=== PATIENT | female | born 1985 | race Caucasian/White ===

== ENCOUNTER 2018-09-25 07:33 | Observation (INO) | payer BC, SELFPAY ==
[2018-09-25] VITALS (12 sets, daily range): BP systolic 123–163; BP diastolic 75–107; PULSE 64–97; RESP 16–18; TEMP 36.8–36.9; O2SAT 98–100; BMI 22.3
--- NOTE | 2018-09-25 08:01 | XR_ITS ---
XR chest 2V HISTORY: ITS.REASON: pain ORDERING PHYSICIAN: Wade Lynn MD PATIENT AGE: 33 years COMPARISON: 11/08/2016 FINDINGS: The cardiomediastinal silhouette and pulmonary vascularity are within normal limits. The lungs are clear without infiltrates, suspicious nodules, or pleural effusions. No acute bony abnormalities. IMPRESSION: Negative chest, no acute finding
[2018-09-25 08:19] LABS: Microscopic, Urine URINE MICROSCOPIC (MICROSCOPIC)
[2018-09-25 08:21] LABS: Appearance,Urine CLEAR (Clear); Bilirubin,Urine Negative (Negative); Blood, Urine Negative (Negative); Color,Urine YELLOW (Yellow); Glucose,Urine (UA) Negative (Negative); Ketones,Urine Negative (Negative); Leukocyte Esterase,Urine TRACE (Negative); Nitrate,Urine Negative (Negative); Protein,Urine Negative (Negative); Urobilinogen,Urine 0.2 EU/dl (0.2)
[2018-09-25 08:23] LABS: Basophils % 0.6 % (0.1-2.0); Eosinophils # 0.1 K/mm3 (0.0-0.4); Eosinophils % 1.7 % (0.1-12.0); Hematocrit 38.5 % (37.0-47.0); Hemoglobin 11.5 g/dL (12.2-16.2); Lymphocytes # 1.4 K/mm3 (0.7-4.5); Lymphocytes % 23.8 % (10-50); Mean Corpuscular Hemoglobin 24.9 pg (27.0-31.2); Mean Corpuscular Volume 82.9 fl (81-99); Mean Platelet Volume 7.8 fl (7.4-10.4); Monocytes # 0.4 K/mm3 (0.1-1.0); Monocytes % 6.1 % (1.7-9.3); Neutrophils # 3.9 K/mm3 (1.8-7.8); Neutrophils % 67.8 % (37.0-80.0); Platelet Count 274 K/mm3 (142-424); Red Blood Count 4.64 M/mm3 (4.20-5.40); Red Cell Distribution Width 18.9 % (11.5-17.5); White Blood Count 5.8 K/mm3 (4.8-10.8)
[2018-09-25 08:27] LABS: Urine Pregnancy, HCG Qual. Negative (Negative)
[2018-09-25 08:34] LABS: Alanine Aminotransferase 95 U/L (12-78); Albumin Level 3.6 gm/dL (3.4-5.0); Albumin/Globulin Ratio 0.9 (1.1-1.8); Alkaline Phosphatase 62 U/L (46-116); Amylase 40 U/L (25-115); Anion Gap 15.4 mEq/L (5-15); Aspartate Amino Transferase 149 U/L (15-37); Bilirubin,Direct 0.2 mg/dL (0.0-0.2); Bilirubin,Indirect 0.4 mg/dL (0.0-0.9); Bilirubin,Total 0.6 mg/dL (0.2-1.0); Blood Urea Nitrogen 7 mg/dL (7-18); Calcium 8.7 mg/dL (8.5-10.1); Carbon Dioxide 25 mmol/L (21.0-32.0); Chloride 100 mmol/L (98-107); Creatinine Clearance Estimated 95 mL/min (50-200); Creatinine,Serum 0.82 mg/dL (0.55-1.02); Estimated Glomerular Filt Rate 81 ml/min (>60); Ethyl Alcohol 12 mg/dL (0-99); GFR (African American) 98 ML/MIN (>60); Globulin 4.1 gm/dl (1.3-3.2); Glucose 93 mg/dL (74-106); Lipase 302 u/L (73-393); Potassium 3.4 mmoL/L (3.5-5.1); Sodium 137 mmol/L (136-145); Total Protein,Serum 7.7 gm/dL (6.4-8.2); Troponin I < 0.02 ng/ml (0.00-0.06)
--- NOTE | 2018-09-25 08:43 | HMH.EDGENADL ---
ED Disposition Clinical Impression: Alcoholism, Chest pain, atypical Alcohol withdrawal Qualifiers: Complication of substance-induced condition: uncomplicated Qualified Code(s): F10.230 - Alcohol dependence with withdrawal, uncomplicated Disposition: Admitted as Observation Condition on Discharge: Fair - Critical Care Critical Care Time: No Attestation: On 09/25/18, the high probability of a clinically significant, sudden or life threatening deterioration of the following system(s) required my full and direct attention, intervention and personal management. The time I documented below is in addition to time spent performing reported procedures but includes the following listed in this critical care notation. Medical Decision Making - D[place] Inquiry Pt receiving controlled substance: Yes D[place] was queried for this patient: No Reason not queried -: Emergent pt cond-no time Risks and benefits of using a controlled substance: were not discussed with pt by me Vital Signs: 09/25/18 07:49 09/25/18 08:04 09/25/18 08:30 Temperature 98.3 F Temperature Source Oral Pulse Rate [Left Radial] 89 81 76 Respiratory Rate 17 Blood Pressure [Right Arm] 151/107 H 163/104 H 153/100 H Blood Pressure Mean [Right Arm] 121 123 117 Blood Pressure Source [Right Arm] Automatic Cuff Automatic Cuff Automatic Cuff Blood Pressure Position [Right Arm] Sitting Supine Supine 02 Sat by Pulse Oximetry 100 100 100 Oxygen Delivery Method Room Air Room Air Room Air - Lab Data Lab Results 09/25/18 07:42: Urine Color Yellow, Urine Appearance Clear, Urine pH 6.0, Ur Specific [place] 1.010, Urine Protein Negative, Urine Glucose (UA) Negative, Urine Ketones Negative, Urine Blood Negative, Urine Nitrate Negative, Urine Bilirubin Negative, Urine Urobilinogen 0.2, Ur Leukocyte Esterase Trace, Urine RBC None, Urine WBC Occasional, Ur Squamous Epith Cells Occasional, Urine Bacteria Trace 09/25/18 07:42: Urine HCG, Qual Negative 09/25/18 07:45: WBC 5.8, RBC 4.64, Hgb 11.5 L, Hct 38.5, MCV 82.9, MCH 24.9 L, MCHC 30.0 L, RDW 18.9 H, Plt Count 274, MPV 7.8, Neut % (Auto) 67.8, Lymph % (Auto) 23.8, Real % (Auto) 6.1, Eos % (Auto) 1.7, Baso % (Auto) 0.6, Neut # (Auto) 3.9, Lymph # (Auto) 1.4, Real # (Auto) 0.4, Eos # (Auto) 0.1, Baso # (Auto) 0.0 09/25/18 07:45: Sodium 137, Potassium 3.4 L, Chloride 100, Carbon Dioxide 25, Anion Gap 15.4 H, BUN 7, Creatinine 0.82, Estimated Creat Clear 95, Estimated GFR 81, Est GFR ( Amer) 98, Glucose 93, Calcium 8.7, Total Bilirubin 0.6, Direct Bilirubin 0.2, Indirect Bilirubin 0.4, AST 149 H, ALT 95 H, Alkaline Phosphatase 62, Troponin I < 0.02, Total Protein 7.7, Albumin 3.6, Globulin 4.1 H, Albumin/Globulin Ratio 0.9 L, Amylase 40, Lipase 302, Plasma/Serum Alcohol 12 Result diagrams: 09/25/18 07:45 09/25/18 07:45 Orders (Tests/Meds): ED MEDICATIONS Discontinued Medications Generic Name Dose Route Start Last Admin Trade Name Freq PRN Reason Stop Dose Admin Lorazepam 1 mg 09/25/18 08:55 09/25/18 09:13 Ativan 2mg/Ml Vial IV 09/25/18 08:56 1 mg ONCE ONE Administration ORDERS Category Date Time Status XR chest 2V Stat Exams 09/25/18 08:01 Taken Drug Screen,Urine Stat Lab 09/25/18 07:42 Received Hepatitis Panel (4) Stat Lab 09/25/18 09:19 Ordered T4 (Thyroxine) Stat Lab 09/25/18 09:19 Ordered TSH [Thyroid Stimulating Hormone] Stat Lab 09/25/18 09:19 Ordered - Radiology Data #1 Image(s): Chest Image Reviewed: Yes I reviewed the patient's radiology image Preliminary Findings: Normal/NAD - ECG Data Tracing #1 EKG interpreted by Jose Roberto Ricardo MD: Rhythm: sinus Rate: 85 [place]: normal Ectopy: none Conduction: normal ST Segment Changes: none T Wave Changes: Nonspecific Q Waves: none No evidence of acute ischemia or injury Prior electrocardiagrams reviewed. No change from prior tracings. - Physician Consults Physician Consulted: Shane - present Time:
[2018-09-25 08:45] LABS: Bacteria,Urine Trace /lpf; Squamous Epithelial Cell,Urine Occasional #/hpf (0-5)
[2018-09-25 08:46] LABS: WBC,Urine Occasional #/hpf (0-3)
--- NOTE | 2018-09-25 09:09 | PC.NURSE ---
SPEAKING WITH DR BILL CONCERNING ADMISSION OF PT. DR BILL IS COVERING FOR DR ANDERSON WHO IS ASSIGNED TO SERVICE TODAY.
--- NOTE | 2018-09-25 09:10 | PC.NURSE ---
DR BILL AT BS
[2018-09-25 09:31] LABS: Amphetamine/Metha Screen,Urine Negative ng/mL (<1000); Barbiturates Screen,Urine Negative ng/mL (<200); Benzodiazepines Screen,Urine Negative ng/mL (<200); Cannabinoid Screen,Urine Negative ng/mL (<50); Cocaine Screen,Urine Negative ng/mL (<300); Methadone Screen,Urine Negative ng/mL (<300); Opiate Screen,Urine Negative ng/mL (<300); Phencyclidine Screen,Urine Negative ng/mL (<25)
[2018-09-25 09:49] LABS: T4 (Thyroxine) 6.7 ug/dl (4.7-13.3); Thyroid Stimulating Hormone 3.17 uIU/ml (0.358-3.740)
--- NOTE | 2018-09-25 09:58 | CA_ITS ---
PROCEDURE: 2-D M-mode and color Doppler study INDICATIONS FOR THE TEST: Chest pain + COPD Heart Murmur Tobacco Smoking Palpitations Fatigue Syncope + Edema Hypertension Diabetes Mellitus Rheumatic Fever SOB MARTIN Obesity Hyperlipidemia Family History HD Additional History alcohol withdrawl PATIENT INFORMATION HEIGHT: 65 WEIGHT:134 GENDER: Female B/P:153/100 2-D/M-MODE INTERPRETATION: 2-D MEASUREMENTS OBSERVED VALUES IN CMS Right Ventricular Dimension (RVDd) 2.7 Interventricular Septum (Thickness)(IVsd) 0.8 Left Ventricular Internal Dimensions(LVIDd) 5.2 Left Ventricular Posterior Wall (Thickness)(LVPWd) 0.6 Aortic Root 2.2 Aortic Cusp Separation 2.0 Left Atrial Dimensions (LAD) 2.9 2D 1. Left atrium is normal size, left ventricle is normal size, there is no concentric left ventricular hypertrophy, visually estimated ejection fraction 55% with no regional wall motion abnormality. 2. The right atrium and right ventricle are normal size and contractility. 3. The aortic valve is minimally thickened and fibrosed. There is no aortic stenosis. 4. The mitral, and tricuspid valvular grossly normal. 5. The pulmonic valve is poorly present. 6. No significant pericardial effusion noted. DOPPLER INTERROGATION: Doppler interrogation of the aortic, mitral and tricuspid valvular presence of trace aortic, mild mitral and tricuspid regurgitation, tricuspid regurgitation jet velocity is inadequate for calculation of the right ventricular systolic pressure, diastolic parameters are inconclusive. CONCLUSION: 1. Normal left ventricular size, preserved left ventricular systolic function, visually estimated ejection fraction 55% with no regional wall motion abnormality, diastolic parameters are inconclusive. 2. Trace aortic, mild mitral and tricuspid regurgitation 3. No significant pericardial effusion noted.
--- NOTE | 2018-09-25 10:14 | HMH.PHAVTE ---
[facility] VTE Monitoring - Patient Demographics Admission date: 09/25/18 Report Date: 09/25/18 Time: 10:14 Allergies/Adverse Reactions: Patient Allergies No Known Allergies Allergy (Unverified 04/10/17 14:18) Height: 1.65 m Weight: 60.781 kg Patient Problems: Current Active Problems (Updated 09/25/18 @ 09:16 by Jose Roberto Ricardo MD) Alcohol withdrawal (Acute) Alcoholism (Acute) Chest pain, atypical (Acute) - VTE Risk Labs: VTE Related Lab Results Hgb 11.5 g/dL (12.2-16.2) L 09/25/18 07:45 Hct 38.5 % (37.0-47.0) 09/25/18 07:45 Plt Count 274 K/mm3 (142-424) 09/25/18 07:45 BUN 7 mg/dL (7-18) 09/25/18 07:45 Creatinine 0.82 mg/dL (0.55-1.02) 09/25/18 07:45 Estimated Creat Clear 95 mL/min (50-200) 09/25/18 07:45 - Prophylaxis VTE Prophylaxis Ordered?: Yes Types of VTE Prophylaxis: TEDS Knee High Location of Applied Device: Bilateral Lower Extremeties - VTE Diagnosis Confirmed Treatment or plan recommended: Continue Current Treatment
--- NOTE | 2018-09-25 10:26 | PC.NURSE ---
completing echo at this time
--- NOTE | 2018-09-25 12:24 | HMH.HP ---
*Admission Date: 09/25/18 *Chief complaint: alcohol misuse *History of present illness: this wf presented to the ed with hx of etoh misuse for yrs and wishes to stop and she reports positive fh of etoh and prev ptsd - [facility] denied other drugs and no sig health issues - she has sig other for support [facility] History I have reviewed the patient's past medical history: Yes Medical History: Denies:: Cancer, Diabetes Mellitus Type 1, Diabetes Mellitus Type 2, MRSA *Have you ever received a pneumonia vaccine?: No *Have you received a flu vaccine this season?: No Other Surgeries: Yes: Tubal Ligation Amputation: No Fractures: No - *Social History Educational Level: Completed GED/General Educational Development Smoking Status: Current every day smoker Tobacco Type: cigarettes # Packs/Day (cigarettes): 1 Alcohol Intake: current Alcohol Intake Frequency:: 3 or more drinks per day *Occupational Status:: other Housing: house Household Members: spouse *Travel in the last 8 weeks: None - Psychiatric History Expresses thoughts of harming self/others: None Suicide Plan Description: No Plan Family Hx:: Cancer, Coronary Artery Disease, Diabetes, Hyperlipidemia, Hypertension Review of Systems - Review of Systems Review of systems:: pertinent systems reviewed and negative unless documented below - Constitutional Denies fever(s) - Eyes Denies change in vision - ENT Denies sore throat - *Cardiovascular Denies chest pain at rest - *Respiratory Denies cough - *Gastrointestinal Denies abdominal pain - *Genitourinary Denies blood in urine - *Musculoskeletal Denies joint pain - Integumentary/Breasts Denies rash - *Neurologic Denies seizure-like activity - Psychiatric Reports anxiety, Denies thoughts of hurting/killing yourself Meds Home Medications Medication Instructions Recorded Confirmed Type No Known Home Medications 09/25/18 09/25/18 History Allergies Allergy/AdvReac Type Severity Reaction Status Date / Time No Known Allergies Allergy Unverified 04/10/17 14:18 Exam Vital signs and Labs for Last 24 Hours: Temp Pulse Resp BP Pulse Ox 98.2 F 74 16 154/90 H 100 09/25/18 11:21 09/25/18 11:21 09/25/18 11:21 09/25/18 11:21 09/25/18 11:21 Laboratory Results - last 24 hr 09/25/18 07:42: Urine Color Yellow, Urine Appearance Clear, Urine pH 6.0, Ur Specific [place] 1.010, Urine Protein Negative, Urine Glucose (UA) Negative, Urine Ketones Negative, Urine Blood Negative, Urine Nitrate Negative, Urine Bilirubin Negative, Urine Urobilinogen 0.2, Ur Leukocyte Esterase Trace, Urine RBC None, Urine WBC Occasional, Ur Squamous Epith Cells Occasional, Urine Bacteria Trace 09/25/18 07:42: Urine HCG, Qual Negative 09/25/18 07:42: Urine Opiates Screen Negative, Urine Methadone Screen Negative, Ur Barbituates Screen Negative, Ur Phencyclidine Scrn Negative, Ur Amphetamines Screen Negative, U Benzodiazepines Scrn Negative, Urine Cocaine Screen Negative, U Marijuana (THC) Screen Negative 09/25/18 07:45: WBC 5.8, RBC 4.64, Hgb 11.5 L, Hct 38.5, MCV 82.9, MCH 24.9 L, MCHC 30.0 L, RDW 18.9 H, Plt Count 274, MPV 7.8, Neut % (Auto) 67.8, Lymph % (Auto) 23.8, [place] % (Auto) 6.1, Eos % (Auto) 1.7, Baso % (Auto) 0.6, Neut # (Auto) 3.9, Lymph # (Auto) 1.4, [place] # (Auto) 0.4, Eos # (Auto) 0.1, Baso # (Auto) 0.0 09/25/18 07:45: Sodium 137, Potassium 3.4 L, Chloride 100, Carbon Dioxide 25, Anion Gap 15.4 H, BUN 7, Creatinine 0.82, Estimated Creat Clear 95, Estimated GFR 81, Est GFR ( Amer) 98, Glucose 93, Calcium 8.7, Total Bilirubin 0.6, Direct Bilirubin 0.2, Indirect Bilirubin 0.4, AST 149 H, ALT 95 H, Alkaline Phosphatase 62, Troponin I < 0.02, Total Protein 7.7, Albumin 3.6, Globulin 4.1 H, Albumin/Globulin Ratio 0.9 L, Amylase 40, Lipase 302, Plasma/Serum Alcohol 12 09/25/18 07:45: TSH 3.17, Thyroxine (T4) 6.7 I & O for Last 24 hours: Intake & Output 09/23/18 06/0
[2018-09-25 13:20] LABS: Troponin I < 0.02 ng/ml (0.00-0.06)
[2018-09-25 15:55] LABS: Troponin I < 0.02 ng/ml (0.00-0.06)
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
--- NOTE | 2018-09-25 19:15 | PC.NURSE ---
report given to saurabh
[2018-09-26] VITALS: BP 134/91; PULSE 70; PULSE 88; RESP 18; TEMP 36.7; O2SAT 97
[2018-09-26 04:00] VITALS: BP 134/81; PULSE 74; RESP 18; TEMP 36.7; O2SAT 97
--- NOTE | 2018-09-26 05:02 | PC.NURSE ---
PT HAS SLEPT. RECEIVED ATIVAN ONCE FOR WITHDRAWAL, PT DIAPHORETIC/TREMORS NOTED.
[2018-09-26 05:45] VITALS: BMI 24.2
[2018-09-26 06:12] LABS: Hep A Ab, IgM Negative (Negative); Hepatitis B Core Antibody IgM Negative (Negative); Hepatitis B Surface Antigen Negative (Negative)
[2018-09-26 07:07] LABS: Anion Gap 11.7 mEq/L (5-15); Blood Urea Nitrogen 8 mg/dL (7-18); Carbon Dioxide 25 mmol/L (21.0-32.0); Chloride 107 mmol/L (98-107); Chol/HDL Ratio 1.7 (1-3.5); Cholesterol 158 mg/dL (140-200); Creatinine Clearance Estimated 125 mL/min (50-200); Creatinine,Serum 0.68 mg/dL (0.55-1.02); Estimated Glomerular Filt Rate 101 ml/min (>60); GFR (African American) 122 ML/MIN (>60); Glucose 84 mg/dL (74-106); HDL Cholesterol 92 mg/dL (29-89); LDL Cholesterol 56 mg/dL (0-130); Magnesium 1.8 mg/dL (1.4-2.2); Potassium 3.7 mmoL/L (3.5-5.1); Sodium 140 mmol/L (136-145); Triglycerides 48 mg/dL (30-200); VLDL Cholesterol 10 mg/dL (0-40)
[2018-09-26 07:25] LABS: Calcium 7.8 mg/dL (8.5-10.1)
[2018-09-26 07:44] LABS: Basophils % 0.3 % (0.1-2.0); Eosinophils # 0.1 K/mm3 (0.0-0.4); Hematocrit 33.6 % (37.0-47.0); Lymphocytes # 1.3 K/mm3 (0.7-4.5); Lymphocytes % 29.6 % (10-50); Mean Corpuscular HGB Conc 30.5 g/dL (31.8-35.4); Mean Corpuscular Hemoglobin 24.6 pg (27.0-31.2); Mean Corpuscular Volume 80.5 fl (81-99); Mean Platelet Volume 7.3 fl (7.4-10.4); Monocytes # 0.2 K/mm3 (0.1-1.0); Monocytes % 5.3 % (1.7-9.3); Neutrophils # 2.7 K/mm3 (1.8-7.8); Neutrophils % 61.8 % (37.0-80.0); Platelet Count 246 K/mm3 (142-424); Red Blood Count 4.17 M/mm3 (4.20-5.40); Red Cell Distribution Width 18.4 % (11.5-17.5); White Blood Count 4.4 K/mm3 (4.8-10.8)
[2018-09-26 07:53] VITALS: BP 133/80; PULSE 92; RESP 16; TEMP 36.8; O2SAT 99
[2018-09-26 08:00] VITALS: PULSE 92; RESP 16; O2SAT 99
[2018-09-26 08:00] LABS: Hemoglobin 10.1 g/dL (12.2-16.2)
--- NOTE | 2018-09-26 08:49 | HMH.ACPN2 ---
Internal Medicine - PN: Subj *Date: 09/26/18 *Time: 08:54 Interval history: 33-year-old female patient sleeping will be entered room awakens easily. Reports she is feeling better vital signs stable blood pressure has decreased. She does have a slight tremor and receiving Ativan IV as needed. Discussed 28-day programs with her she is agreeable to that. Mental health has seen and note is entered Exam Vital signs and Labs for Last 24 Hours: Temp Pulse Resp BP Pulse Ox 98.2 F 92 H 16 133/80 99 09/26/18 07:53 09/26/18 07:53 09/26/18 07:53 09/26/18 07:53 09/26/18 07:53 Laboratory Results - last 24 hr 09/25/18 07:42: Urine Opiates Screen Negative, Urine Methadone Screen Negative, Ur Barbituates Screen Negative, Ur Phencyclidine Scrn Negative, Ur Amphetamines Screen Negative, U Benzodiazepines Scrn Negative, Urine Cocaine Screen Negative, U Marijuana (THC) Screen Negative 09/25/18 07:45: TSH 3.17, Thyroxine (T4) 6.7 09/25/18 12:40: Troponin I < 0.02 09/25/18 15:25: Troponin I < 0.02 09/26/18 06:30: WBC 4.4 L, RBC 4.17 L, Hgb 10.1 L D, Hct 33.6 L, MCV 80.5 L, MCH 24.6 L, MCHC 30.5 L, RDW 18.4 H, Plt Count 246, MPV 7.3 L, Neut % (Auto) 61.8, Lymph % (Auto) 29.6, [place] % (Auto) 5.3, Eos % (Auto) 3.0, Baso % (Auto) 0.3, Neut # (Auto) 2.7, Lymph # (Auto) 1.3, [place] # (Auto) 0.2, Eos # (Auto) 0.1, Baso # (Auto) 0.0 09/26/18 06:30: Sodium 140, Potassium 3.7, Chloride 107, Carbon Dioxide 25, Anion Gap 11.7, BUN 8, Creatinine 0.68, Estimated Creat Clear 125, Estimated GFR 101, Est GFR ( Amer) 122 D, Glucose 84, Calcium 7.8 L D, Magnesium 1.8, Triglycerides 48, Cholesterol 158, LDL Cholesterol 56, VLDL Cholesterol 10, HDL Cholesterol 92 H, Cholesterol/HDL Ratio 1.7 I & O for Last 24 hours: Intake & Output 09/23/18 09/24/18 09/25/18 09/26/18 23:59 23:59 23:59 23:59 Intake Total 960 / 960 2218 / 2218 Output Total 300 / 300 Balance 960 / 960 1918 / 1918 Weight 134 lb 145 lb 8 oz Radiology Reports for the Last 24 Hours: 09/25/2018 CXR: IMPRESSION: Negative chest, no acute finding Dictated By: Rashad Ash MD - Constitutional no acute distress - *Routine HEENT Exam Head: Present: normocephalic Eye: Present: EOMI, PERRL. Absent: scleral injection ENT: Present: mucous membranes dry - *Routine Neck Exam Present: full ROM, trachea midline - *Routine Respiratory Exam Present: CTA bilaterally. Absent: accessory muscle use - *Routine Cardiovascular Exam Present: RRR. Absent: JVD - *Routine Abdominal Exam Present: soft, normoactive bowel sounds. Absent: tenderness - *Routine Extremities Exam Present: full ROM, pulses intact. Absent: cyanosis - Routine Back/Spine/Pelvis Exam Back/Spine: Present: full ROM. Absent: CVA tenderness - *Routine Skin Exam Present: intact. Absent: cyanosis - *Routine Neurological Exam Present: alert, oriented X3, CN II-XII intact, tremors. Absent: altered mental status - Routine Psychiatric Exam Present: normal affect, normal thought process. Absent: suicidal ideation, homicidal ideation, auditory hallucinations, visual hallucinations Assessment and Plan (1) Tobacco use Current visit: Yes Status: Acute Category: Medical Code(s): Z72.0 - Tobacco use (2) Alcoholism Current visit: Yes Status: Acute Category: Medical Code(s): F10.20 - Alcohol dependence, uncomplicated (3) Chest pain, atypical Current visit: Yes Status: Acute Category: Medical Code(s): R07.89 - Other chest pain - Assessment and plan all Dx Assessment and Plan for all problems:: Rounds per Dr. Lynn all orders per Dr. Lynn. We will currently plan for discharge in the morning. Case management will investigate 28-day programs that is covered by patient's insurance
--- NOTE | 2018-09-26 10:54 | SW/DCPLANNER ---
Addendum entered by Lauren Riley 09/26/18 13:45: Dorie from [facility] has stated that no information needs to be faxed and the nurse does NOT need to call report. Addendum entered by Lauren [place] 09/26/18 13:40: This patient has been accepted to [facility] once Zoom Assessment was completed. I have spoke with Dorie from [facility] and she has stated that Dr Franklin. I have informed Dr Lynn of acceptance and he is fine with this patient discharging to [facility] today. The patient concurs with this plan. I have spoke with patients nurse (Hedy) and patient will benefit from EMS or police transport due to active withdrawals and suicidal thoughts. Hedy will contact EMS for transport once discharge order is in. Patient will discharge today to [facility] today. Original Note: I spoke with patient this morning regarding discharge plans. Patient was very tearful and stated that she knows that she needs help. Patient began during conversation only being [place] [facility] [place] discussion regarding discharge plans and patients needs (alcohol abuse and behavioral health) patient agreed to go further if needed. Patient stated that she has been to [facility] in the past. Patient is agreeable to do Zoom Assessment with [facility] today. I am currently in the process of setting up Zoom Assessment and beginning the call. I will follow up with [facility], patient, and MD once assessment is completed. Patient also showed an interest in [facility] and [facility] in [place].
[2018-09-26 16:00] VITALS: BP 147/94; PULSE 86; RESP 16; TEMP 36.8; O2SAT 98
--- NOTE | 2018-09-26 16:59 | HMH.DCSUM ---
General - General Admission date:: 09/25/18 Discharge date: 09/26/18 HPI HPI: this wf presented to the ed with hx of etoh misuse for yrs and wishes to stop and she reports positive fh of etoh and prev ptsd - she has had past psch admits but no etoh rehab denied other drugs and no sig health issues - she has sig other for support Hospital Course Hospital Course: Iv fluids, seizure precautions, meds as needed, today Reports she is feeling better, vital signs stable blood pressure has decreased. She does have a slight tremor and receiving Ativan IV as needed. Discussed 28-day programs with her she is agreeable to that. 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 will transfer to the [facility]. Objective Vital signs: Temp Pulse Resp BP Pulse Ox 98.2 F 86 16 147/94 H 98 09/26/18 16:00 09/26/18 16:00 09/26/18 16:00 09/26/18 16:00 09/26/18 16:00 no acute distress - *Routine HEENT Exam Head: Present: normocephalic Eye: Present: PERRL ENT: Present: mucous membranes moist - *Routine Respiratory Exam Present: CTA bilaterally - *Routine Cardiovascular Exam Present: RRR - *Routine Abdominal Exam Present: soft, normoactive bowel sounds - *Routine Extremities Exam Present: full ROM - *Routine Skin Exam Present: intact - *Routine Neurological Exam Present: alert, oriented X3, moving all extremities, tremors - Routine Psychiatric Exam Present: normal affect Results Labs on day of discharge: Labs from last 24 hours 09/26/18 09/26/18 06:30 06:30 WBC 4.4 L RBC 4.17 L Hgb 10.1 L D Hct 33.6 L MCV 80.5 L MCH 24.6 L MCHC 30.5 L RDW 18.4 H Plt Count 246 MPV 7.3 L Neut % (Auto) 61.8 Lymph % (Auto) 29.6 [place] % (Auto) 5.3 Eos % (Auto) 3.0 Baso % (Auto) 0.3 Neut # (Auto) 2.7 Lymph # (Auto) 1.3 [place] # (Auto) 0.2 Eos # (Auto) 0.1 Baso # (Auto) 0.0 Sodium 140 Potassium 3.7 Chloride 107 Carbon Dioxide 25 Anion Gap 11.7 BUN 8 Creatinine 0.68 Estimated Creat Clear 125 Estimated GFR 101 Est GFR ( Amer) 122 D Glucose 84 Calcium 7.8 L D Magnesium 1.8 Triglycerides 48 Cholesterol 158 LDL Cholesterol 56 VLDL Cholesterol 10 HDL Cholesterol 92 H Cholesterol/HDL Ratio 1.7 - Additional Comments rounded with julianne all orders per julianne DS: Diagnosis - Discharge Diagnosis (1) Tobacco use Status: Acute (2) Alcoholism Status: Acute (3) Chest pain, atypical Status: Acute Discharge Plan - Patient Discharge Instructions ACTIVITY: Continue current activity DIET: continue same diet Patient Instructions: DI for Atypical Chest Pain, Drug and Alcohol Withdrawal, DI for Drug or Alcohol Withdrawal - Follow up Plan Follow up with: Wade Lynn MD [Staff Physician] - 1 week Disposition: Xfer Psychiatric Hosp Home Medications: Home Medications Medication Instructions Recorded Confirmed Type No Known Home Medications 09/25/18 09/25/18 History Prescriptions/Medication Reconciliation: No Action No Known Home Medications
--- NOTE | 2018-09-26 17:02 | P.DS_ITS ---
General - General Admission date:: 09/25/18 Discharge date: 09/26/18 HPI HPI: this wf presented to the ed with hx of etoh misuse for yrs and wishes to stop and she reports positive fh of etoh and prev ptsd - she has had past psch admits but no etoh rehab denied other drugs and no sig health issues - she has sig other for support Hospital Course Hospital Course: Iv fluids, seizure precautions, meds as needed, today Reports she is feeling better, vital signs stable blood pressure has decreased. She does have a slight tremor and receiving Ativan IV as needed. Discussed 28-day programs with her she is agreeable to that. 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 will transfer to the [facility]. Objective Vital signs: Temp Pulse Resp BP Pulse Ox 98.2 F 86 16 147/94 H 98 09/26/18 16:00 09/26/18 16:00 09/26/18 16:00 09/26/18 16:00 09/26/18 16:00 no acute distress - *Routine HEENT Exam Head: Present: normocephalic Eye: Present: PERRL ENT: Present: mucous membranes moist - *Routine Respiratory Exam Present: CTA bilaterally - *Routine Cardiovascular Exam Present: RRR - *Routine Abdominal Exam Present: soft, normoactive bowel sounds - *Routine Extremities Exam Present: full ROM - *Routine Skin Exam Present: intact - *Routine Neurological Exam Present: alert, oriented X3, moving all extremities, tremors - Routine Psychiatric Exam Present: normal affect Results Labs on day of discharge: Labs from last 24 hours 09/26/18 09/26/18 06:30 06:30 WBC 4.4 L RBC 4.17 L Hgb 10.1 L D Hct 33.6 L MCV 80.5 L MCH 24.6 L MCHC 30.5 L RDW 18.4 H Plt Count 246 MPV 7.3 L Neut % (Auto) 61.8 Lymph % (Auto) 29.6 [place] % (Auto) 5.3 Eos % (Auto) 3.0 Baso % (Auto) 0.3 Neut # (Auto) 2.7 Lymph # (Auto) 1.3 [place] # (Auto) 0.2 Eos # (Auto) 0.1 Baso # (Auto) 0.0 Sodium 140 Potassium 3.7 Chloride 107 Carbon Dioxide 25 Anion Gap 11.7 BUN 8 Creatinine 0.68 Estimated Creat Clear 125 Estimated GFR 101 Est GFR ( Amer) 122 D Glucose 84 Calcium 7.8 L D Magnesium 1.8 Triglycerides 48 Cholesterol 158 LDL Cholesterol 56 VLDL Cholesterol 10 HDL Cholesterol 92 H Cholesterol/HDL Ratio 1.7 - Additional Comments rounded with julianne all orders per julianne DS: Diagnosis - Discharge Diagnosis (1) Tobacco use Status: Acute (2) Alcoholism Status: Acute (3) Chest pain, atypical Status: Acute Discharge Plan - Patient Discharge Instructions ACTIVITY: Continue current activity DIET: continue same diet Patient Instructions: DI for Atypical Chest Pain, Drug and Alcohol Withdrawal, DI for Drug or Alcohol Withdrawal - Follow up Plan Follow up with: Wade Lnyn MD [Staff Physician] - 1 week Disposition: X
[2018-09-27 20:44] LABS: Hepatitis C Antibody <0.1 s/co ratio (0.0-0.9)
== END 2018-09-26 18:46 ==
LOC: ER 09:16 → 2ND 09:21
PROVIDERS: Admitting Provider Emergency Medicine; Emergency Provider Emergency Medicine; Visit Provider Emergency Medicine
DX: F10.230 Alcohol dependence with withdrawal, uncomplicated (principal); R07.89 Other chest pain; G25.1 Drug-induced tremor; Y90.0 Blood alcohol level of less than 20 mg/100 ml; R19.00 Intra-abdominal and pelvic swelling, mass and lump, unspecified site; Z72.0 Tobacco use
CPT/HCPCS: 36415; 71046; 80048; 80053; 80061; 80074; 80076; 80305; 81001; 81025; 82150; 83690; 83735; 84436; 84443; 84484; 85025; 93005; 93306; 96374; 99284; G0378; J2405

== ENCOUNTER 2018-10-13 00:29 | Inpatient (IN) ==
[2018-10-13 00:44] LABS: Basophils # 0.1 K/mm3 (0-0.2); Basophils % 0.9 % (0.1-2.0); Eosinophils # 0.2 K/mm3 (0.0-0.4); Eosinophils % 1.9 % (0.1-12.0); Hematocrit 41.9 % (37.0-47.0); Hemoglobin 12.8 g/dL (12.2-16.2); Lymphocytes # 4.3 K/mm3 (0.7-4.5); Lymphocytes % 39.8 % (10-50); Mean Corpuscular HGB Conc 30.5 g/dL (31.8-35.4); Mean Corpuscular Volume 83.3 fl (81-99); Mean Platelet Volume 6.7 fl (7.4-10.4); Monocytes # 0.4 K/mm3 (0.1-1.0); Neutrophils # 5.7 K/mm3 (1.8-7.8); Neutrophils % 53.3 % (37.0-80.0); Platelet Count 564 K/mm3 (142-424); Red Blood Count 5.04 M/mm3 (4.20-5.40); Red Cell Distribution Width 21.8 % (11.5-17.5); White Blood Count 10.7 K/mm3 (4.8-10.8)
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
[2018-10-13 00:56] LABS: Anion Gap 22.8 mEq/L (5-15); Bilirubin,Total 0.4 mg/dL (0.2-1.0); Calcium 8.8 mg/dL (8.5-10.1); Globulin 3.9 gm/dl (1.3-3.2); Salicylate 6.4 mg/dL (2.8-20.0); Total Protein,Serum 7.9 gm/dL (6.4-8.2)
[2018-10-13 00:56] LABS: ABG Base Excess -3.8 mmol/L (-2.4-2.3); ABG HCO3 19.8 mmhg (22.0-26.0); ABG Oxygen Saturation 99 % (90-100); ABG PCO2 27.6 mmhg (35.0-45.0); ABG PH 7.47 mmol/L (7.35-7.45); ABG PO2 164.6 mmhg (80-100); ABG TCO2 20.7 mmhg (23-27)
[2018-10-13 01:13] LABS: Allen's Test Y; Oxygen 100 %
[2018-10-13 01:54] LABS: Microscopic, Urine URINE MICROSCOPIC (MICROSCOPIC)
[2018-10-13 01:58] LABS: Appearance,Urine CLEAR (Clear); Bilirubin,Urine Negative (Negative); Blood, Urine TRACE-I (Negative); Color,Urine YELLOW (Yellow); Glucose,Urine (UA) Negative (Negative); Ketones,Urine Negative (Negative); Leukocyte Esterase,Urine Negative (Negative); Protein,Urine Negative (Negative); Specific Gravity, Urine <= 1.005 (1.005-1.030); Urobilinogen,Urine 0.2 EU/dl (0.2)
[2018-10-13 02:01] LABS: Amorphous Sediment,Urine Trace /lpf; RBC,Urine Occasional #/hpf (0-3); Squamous Epithelial Cell,Urine Occasional #/hpf (0-5)
[2018-10-13 02:02] LABS: Amphetamine/Metha Screen,Urine Negative ng/mL (<1000); Barbiturates Screen,Urine Positive ng/mL (<200); Benzodiazepines Screen,Urine Negative ng/mL (<200); Cannabinoid Screen,Urine Negative ng/mL (<50); Cocaine Screen,Urine Negative ng/mL (<300); Methadone Screen,Urine Negative ng/mL (<300); Opiate Screen,Urine Negative ng/mL (<300); Phencyclidine Screen,Urine Negative ng/mL (<25)
[2018-10-13 03:25] LABS: Salicylate 4.4 mg/dL (2.8-20.0)
[2018-10-13 05:45] LABS: Activated Partial Thrombo Time 26.6 seconds (23.6-34.0); INR 0.96 (0.9-1.1)
[2018-10-13 05:57] LABS: Albumin Level 3.2 gm/dL (3.4-5.0); Albumin/Globulin Ratio 0.9 (1.1-1.8); Anion Gap 18.2 mEq/L (5-15); Bilirubin,Total 0.3 mg/dL (0.2-1.0); Globulin 3.4 gm/dl (1.3-3.2); Phosphorous 3.5 mg/dL (2.4-4.9); Total Protein,Serum 6.6 gm/dL (6.4-8.2)
[2018-10-13 05:58] LABS: Calcium 6.7 mg/dL (8.5-10.1)
[2018-10-13 06:07] LABS: ABG Base Excess -2.2 mmol/L (-2.4-2.3); ABG HCO3 23.4 mmhg (22.0-26.0); ABG Oxygen Saturation 99 % (90-100); ABG PCO2 43.2 mmhg (35.0-45.0); ABG PH 7.35 mmol/L (7.35-7.45); ABG PO2 158.7 mmhg (80-100); ABG TCO2 24.7 mmhg (23-27)
[2018-10-13 06:15] LABS: Allen's Test Acceptable; Oxygen 45 %; PEEP 5; Tidal Volume 450
[2018-10-13 07:34] LABS: Eosinophils % 0.1 % (0.1-12.0); Mean Corpuscular Volume 85.2 fl (81-99); Monocytes # 0.5 K/mm3 (0.1-1.0)
[2018-10-13 07:38] LABS: Basophils # 0.1 K/mm3 (0-0.2); Basophils % 0.3 % (0.1-2.0); Hematocrit 38.1 % (37.0-47.0); Lymphocytes % 6.3 % (10-50); Mean Corpuscular HGB Conc 29.6 g/dL (31.8-35.4); Monocytes % 3.1 % (1.7-9.3); Neutrophils # 14.7 K/mm3 (1.8-7.8); Neutrophils % 90.2 % (37.0-80.0); Platelet Count 407 K/mm3 (142-424); Red Blood Count 4.48 M/mm3 (4.20-5.40); Red Cell Distribution Width 21.6 % (11.5-17.5); White Blood Count 16.3 K/mm3 (4.8-10.8)
[2018-10-13 07:41] LABS: Hemoglobin 11.3 g/dL (12.2-16.2)
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
[2018-10-13 08:24] LABS: Lymphocytes % 5 % (10-50); Macrocytosis 1+; Monocytes % 1 % (2-9); Neutrophils % 94 % (42-76); Total Cells Counted 100
--- NOTE | 2018-10-13 08:26 | Procedure Note ---
[facility] Procedure Note Procedure Note:: Ventilator management note: After improved mental status and ability to over breathe the ventilator with acc eptable tidal volumes on pressure support Patient extubated without difficulty nasal cannula.
--- NOTE | 2018-10-13 11:27 | Pharmacy Consult Notes ---
[facility] Pharmacy VTE Monitoring - Patient Demographics Admission date: 10/13/18 Report Date: 10/13/18 Time: 11:27 Allergies/Adverse Reactions: Patient Allergies No Known Allergies Allergy (Verified 10/13/18 05:39) Height: 1.75 m Weight: 62.097 kg Patient Problems: Current Active Problems (Updated 10/13/18 @ 08:24 by Harrison Jimenez MD) Chest pain, atypical (Acute) Acute respiratory failure (Acute) Alcohol intoxication (Acute) Overdose (Acute) Altered mental status (Acute) Hypocalcemia (Acute) Hypokalemia (Acute) Encounter for weaning from ventilator (Acute) - VTE Risk Labs: VTE Related Lab Results Hgb 11.3 g/dL (12.2-16.2) L D 10/13/18 06:52 Hct 38.1 % (37.0-47.0) 10/13/18 06:52 Plt Count 407 K/mm3 (142-424) D 10/13/18 06:52 PT 10.0 seconds (9.4-11.8) 10/13/18 00:05 INR 0.96 (0.9-1.1) 10/13/18 00:05 APTT 26.6 seconds (23.6-34.0) 10/13/18 00:05 BUN 7 mg/dL (7-18) 10/13/18 05:05 Creatinine 0.57 mg/dL (0.55-1.02) D 10/13/18 05:05 Estimated Creat Clear 120 mL/min (50-200) 10/13/18 05:05 Was VTE Risk Assessment Performed: Yes VTE Score: 2 VTE Risk Level: Very Low Risk - Prophylaxis Types of VTE Prophylaxis: TEDS Knee High (CASSIE HOSE ORDERED) Location of Applied Device: Bilateral Lower Extremeties
[2018-10-14 08:29] VITALS: BP 135/85
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
== END 2018-10-14 09:55 | disposition home or self-care (01) | DRG 917 ==
LOC: ER 00:29 → 2ND 04:03
PROVIDERS: ADMIT Internal Medicine Adolescent Medicine; ATTEND Internal Medicine Adolescent Medicine
CPT/HCPCS: 31500; 36415; 70450; 71010; 71045; 80053; 80305; 80329; 81001; 81025; 82803; 83735; 84100; 85007; 85014; 85018; 85025; 85048; 85049; 85610; 85730; 87070; 87077; 87186; 87205; 93005; 94002; 96365; 96366; 96367; 96375; 99285; J0330; J2405; J2704